=== PATIENT | male | born 1995 | race Caucasian/White ===

== ENCOUNTER 2023-02-16 15:38 | Outpatient (AMB) | payer OTHER, SELFPAY ==
[2023-02-16 15:41] VITALS: BP 136/74; PULSE 77; RESP 12; TEMP 36.7; O2SAT 99; BMI 25.2
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
== END 2023-02-16 16:17 | disposition home or self-care (01) ==
PROVIDERS: PCP Family Medicine; Visit Provider Nurse Practitioner Family
DX: Z00.00 Encounter for general adult medical examination without abnormal findings (principal)
CPT/HCPCS: 99395

== ENCOUNTER 2023-04-05 09:34 | Outpatient (REF) | payer OTHER, SELFPAY ==
[2023-04-05 12:03] LABS: Appearance Urine Clear; Color Urine Yellow; Glucose Urine UA Negative (Negative); Leukocyte Esterase Urine Trace (Negative); Nitrite Urine Negative (Negative); PH 7.5 (5.0-9.0); Specific Gravity - Urine 1.025 (1.005-1.025); UMIC TRIGGER UACC YES; Urine Blood Negative (Negative); Urine Ketones Negative (Negative); Urine Protein Negative (Neg-Trace)
[2023-04-05 12:05] LABS: Bacteria Urine None Seen (None Seen); Hyaline Casts Urine 0-2 /LPF (0-2); RBC Urine 0-2 /HPF (0-2); Squamous Epithelial Cell Urine 0-2 /HPF (0-2); WBC Urine 0-5 /HPF (0-5)
[2023-04-05 12:13] LABS: Hematocrit 42.1 % (42.0-52.0); Hemoglobin 14.9 g/dl (14.0-18.0); Mean Corpuscular HGB Conc 35.4 g/dl (31.0-36.0); Mean Corpuscular Hemoglobin 30.8 pg (27.0-33.0); Mean Corpuscular Volume 87.2 fL (80.0-98.0); Mean Platelet Volume 10.2 fL (9.4-12.4); Platelet Count 193 X10*3/uL (160-400); Red Blood Count 4.83 X10*6/uL (4.60-5.80); Red Cell Distribution Width 11.9 % (11.0-16.0); White Blood Count 5.6 X10*3/uL (4.8-10.8)
[2023-04-05 12:37] LABS: Alanine Aminotransferase 8 U/L (0-40); Albumin Level 4.2 g/dL (3.5-5.0); Alkaline Phosphatase 49 U/L (39-117); Anion Gap 9 (12-20); Aspartate Amino Transferase 18 U/L (5-37); Bilirubin Total 0.6 mg/dL (0.0-1.0); Blood Urea Nitrogen 20 mg/dL (9-16); Calcium 9.4 mg/dL (8.4-10.2); Carbon Dioxide 28 mmol/L (22-29); Chloride 106 mmol/L (96-108); Cholesterol 127 mg/dL (<200); Estimated Glomerular Filt Rate > 60; Glucose Fasting 95 mg/dL (60-99); HDL Cholesterol 42 mg/dL (>40); LDL Cholesterol Calculated 78 mg/dL (<100); Potassium 3.8 mmol/L (3.3-5.1); Sodium 139 mmol/L (135-145); TSH reflex Free T4 0.86 uIU/mL (0.32-4.0); Triglycerides 36 mg/dL (<150)
== END 2023-04-05 09:35 | disposition home or self-care (01) ==
LOC: HO.WFDLDS 09:34
PROVIDERS: Visit Provider Nurse Practitioner Family
DX: Z00.00 Encounter for general adult medical examination without abnormal findings (principal)
CPT/HCPCS: 36415; 80053; 80061; 81001; 81003; 84443; 85027

== ENCOUNTER 2023-04-18 16:09 | Outpatient (AMB) | payer OTHER, SELFPAY ==
[2023-04-18 16:13] VITALS: BP 106/64; PULSE 76; RESP 12; TEMP 36.4; O2SAT 99; BMI 25.0
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
== END 2023-04-18 16:35 | disposition home or self-care (01) ==
PROVIDERS: PCP Family Medicine; Visit Provider Nurse Practitioner Family
DX: F41.9 Anxiety disorder, unspecified (principal); F32.A Depression, unspecified; F90.9 Attention-deficit hyperactivity disorder, unspecified type; L70.9 Acne, unspecified
CPT/HCPCS: 99213

== ENCOUNTER 2023-08-14 17:00 | Outpatient (AMB) | payer OTHER, SELFPAY ==
[2023-08-14 17:06] VITALS: BP 116/70; PULSE 72; RESP 13; TEMP 36.5; O2SAT 99; BMI 26.4
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
== END 2023-08-14 17:33 | disposition home or self-care (01) ==
PROVIDERS: PCP Family Medicine; Visit Provider Nurse Practitioner Family
DX: F41.9 Anxiety disorder, unspecified (principal); F32.A Depression, unspecified; F90.9 Attention-deficit hyperactivity disorder, unspecified type; G47.9 Sleep disorder, unspecified
CPT/HCPCS: 96127; 99213

== ENCOUNTER 2023-12-15 16:41 | Outpatient (AMB) | payer OTHER, SELFPAY ==
[2023-12-15 16:49] VITALS: BP 104/74; PULSE 75; RESP 14; TEMP 36.5; O2SAT 99; BMI 27.0
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
== END 2023-12-15 17:14 | disposition home or self-care (01) ==
PROVIDERS: PCP Family Medicine; Visit Provider Nurse Practitioner Family
DX: M54.9 Dorsalgia, unspecified (principal); F41.9 Anxiety disorder, unspecified; F32.A Depression, unspecified; F90.9 Attention-deficit hyperactivity disorder, unspecified type; G89.29 Other chronic pain
CPT/HCPCS: 99214; G2211

== ENCOUNTER 2024-01-17 08:13 | Outpatient (AMB) | payer OTHER, SELFPAY ==
[2024-01-17 08:19] VITALS: BP 112/68; PULSE 78; O2SAT 98
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
== END 2024-01-17 08:54 | disposition home or self-care (01) ==
PROVIDERS: PCP Family Medicine; Visit Provider Nurse Practitioner Family
DX: B86 Scabies (principal)
CPT/HCPCS: 99213

== ENCOUNTER 2024-03-19 16:39 | Outpatient (AMB) | payer OTHER, SELFPAY ==
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
[2024-03-19 16:42] VITALS: BP 110/80; PULSE 79; RESP 16; TEMP 36.9; O2SAT 98; BMI 25.5
== END 2024-03-19 17:06 | disposition home or self-care (01) ==
PROVIDERS: Visit Provider Nurse Practitioner Family
DX: F41.9 Anxiety disorder, unspecified (principal); F32.A Depression, unspecified; F90.9 Attention-deficit hyperactivity disorder, unspecified type
CPT/HCPCS: 96127; 99214

== ENCOUNTER 2024-04-01 08:32 | Outpatient (REF) | payer OTHER, SELFPAY ==
[2024-04-01 11:17] LABS: MANUAL DIFF FLAG NO
[2024-04-01 11:26] LABS: Appearance Urine Turbid; Color Urine Dark Yellow; Glucose Urine UA Negative (Negative); Leukocyte Esterase Urine Negative (Negative); Nitrite Urine Negative (Negative); Specific Gravity - Urine >= 1.030 (1.005-1.025); Urine Blood Negative (Negative); Urine Ketones Negative (Negative); Urine Protein Trace mg/dL (Neg-Trace)
[2024-04-01 11:46] LABS: Basophils Percent Auto 0.6 % (0-2); Eosinophils Absolute Auto 0.1 X10*3/uL (0.0-0.4); Eosinophils Percent Auto 2.2 % (0-4); Hematocrit 43.3 % (42.0-52.0); Hemoglobin 14.6 g/dl (14.0-18.0); Imm Gran Abs Auto 0.01 X10*3/uL (0.00-0.03); Imm Gran Pct Auto 0.2 % (0.0-0.4); Lymphocytes Absolute Auto 1.8 X10*3/uL (1.2-4.9); Mean Corpuscular HGB Conc 33.7 g/dl (31.0-36.0); Mean Corpuscular Volume 89.1 fL (80.0-98.0); Monocytes Absolute Auto 0.4 X10*3/uL (0.1-1.2); Monocytes Percent Auto 8.1 % (2-11); Neutrophils Absolute Auto 2.6 x10*3/uL (2.0-8.3); Neutrophils Percent Auto 51.9 % (45-73); Platelet Count 191 X10*3/uL (160-400); Red Blood Count 4.86 X10*6/uL (4.60-5.80); Red Cell Distribution Width 11.9 % (11.0-16.0)
[2024-04-01 12:41] LABS: Alanine Aminotransferase 13 U/L (0-40); Albumin Level 4.2 g/dL (3.5-5.0); Alkaline Phosphatase 47 U/L (39-117); Anion Gap 10 (12-20); Aspartate Amino Transferase 18 U/L (5-37); Bilirubin Total 0.5 mg/dL (0.0-1.0); Blood Urea Nitrogen 25 mg/dL (9-16); Calcium 9.3 mg/dL (8.4-10.2); Carbon Dioxide 29 mmol/L (22-29); Chloride 107 mmol/L (96-108); Cholesterol 121 mg/dL (<200); Estimated Glomerular Filt Rate > 60; Glucose Fasting 93 mg/dL (60-99); HDL Cholesterol 36 mg/dL (>40); LDL Cholesterol Calculated 77 mg/dL (<100); Sodium 142 mmol/L (135-145); Total Protein 6.9 g/dL (6.5-8.0); Triglycerides 41 mg/dL (<150)
[2024-04-01 12:46] LABS: TSH reflex Free T4 0.94 uIU/mL (0.32-4.0)
== END 2024-04-01 08:33 | disposition home or self-care (01) ==
LOC: HO.WFDLDS 08:32
PROVIDERS: Visit Provider Nurse Practitioner Family
DX: Z00.00 Encounter for general adult medical examination without abnormal findings (principal)
CPT/HCPCS: 36415; 80053; 80061; 81003; 84443; 85025

== ENCOUNTER 2024-04-15 12:53 | Outpatient (AMB) | payer OTHER, SELFPAY ==
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
[2024-04-15 13:34] VITALS: BP 102/70; PULSE 73; RESP 14; O2SAT 97; BMI 25.4
== END 2024-04-15 14:20 | disposition home or self-care (01) ==
PROVIDERS: Visit Provider Nurse Practitioner Family
DX: F90.0 Attention-deficit hyperactivity disorder, predominantly inattentive type (principal); Z76.89 Persons encountering health services in other specified circumstances; F41.1 Generalized anxiety disorder; F33.1 Major depressive disorder, recurrent, moderate

== ENCOUNTER → 2024-04-15 12:53 | Outpatient (BNVA) | payer OTHER, SELFPAY | PROVIDERS: Visit Provider Nurse Practitioner Family | DX: F90.0 Attention-deficit hyperactivity disorder, predominantly inattentive type (principal); F41.1 Generalized anxiety disorder; F33.1 Major depressive disorder, recurrent, moderate | CPT/HCPCS: 96127 ==

== ENCOUNTER 2024-06-05 10:30 | Outpatient (AMB) | payer OTHER, SELFPAY ==
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
[2024-06-05 10:38] VITALS: BP 98/68; PULSE 69; O2SAT 97; BMI 24.7
== END 2024-06-05 11:13 | disposition home or self-care (01) ==
PROVIDERS: PCP Nurse Practitioner Family; Visit Provider Nurse Practitioner Family
DX: F33.1 Major depressive disorder, recurrent, moderate (principal); F41.1 Generalized anxiety disorder; F90.0 Attention-deficit hyperactivity disorder, predominantly inattentive type

== ENCOUNTER 2024-06-25 13:41 | Outpatient (AMB) | payer OTHER, SELFPAY ==
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
[2024-06-25 13:47] VITALS: BP 99/59; PULSE 59; RESP 12; O2SAT 98; BMI 25.4
== END 2024-06-25 14:11 | disposition home or self-care (01) ==
PROVIDERS: PCP Nurse Practitioner Family; Visit Provider Nurse Practitioner Family
DX: G47.9 Sleep disorder, unspecified (principal); F33.1 Major depressive disorder, recurrent, moderate; F41.1 Generalized anxiety disorder; F90.0 Attention-deficit hyperactivity disorder, predominantly inattentive type

== ENCOUNTER → 2024-06-25 13:41 | Outpatient (BNVA) | payer OTHER, SELFPAY | PROVIDERS: PCP Nurse Practitioner Family; Visit Provider Nurse Practitioner Family ==

== ENCOUNTER 2024-07-05 15:24 | Outpatient (AMB) | payer OTHER, SELFPAY ==
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
== END 2024-07-05 16:50 | disposition home or self-care (01) ==
PROVIDERS: PCP Nurse Practitioner Family; Visit Provider Nurse Practitioner Family
DX: F41.1 Generalized anxiety disorder (principal); F33.1 Major depressive disorder, recurrent, moderate; G47.9 Sleep disorder, unspecified; F90.0 Attention-deficit hyperactivity disorder, predominantly inattentive type

== ENCOUNTER 2024-07-31 12:46 | Outpatient (AMB) | payer OTHER, SELFPAY ==
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
[2024-07-31 12:51] VITALS: BP 136/72; PULSE 60; RESP 13; O2SAT 99; BMI 27.6
== END 2024-07-31 14:06 | disposition home or self-care (01) ==
PROVIDERS: PCP Nurse Practitioner Family; Visit Provider Nurse Practitioner Family
DX: F33.1 Major depressive disorder, recurrent, moderate (principal); F41.1 Generalized anxiety disorder; F90.0 Attention-deficit hyperactivity disorder, predominantly inattentive type

== ENCOUNTER → 2024-07-31 12:46 | Outpatient (BNVA) | payer OTHER, SELFPAY | PROVIDERS: PCP Nurse Practitioner Family; Visit Provider Nurse Practitioner Family | DX: F33.1 Major depressive disorder, recurrent, moderate (principal); F41.1 Generalized anxiety disorder; F90.0 Attention-deficit hyperactivity disorder, predominantly inattentive type; Z79.899 Other long term (current) drug therapy | CPT/HCPCS: 96127 ==

== ENCOUNTER 2024-09-20 10:15 | Outpatient (AMB) | payer OTHER, SELFPAY ==
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
[2024-09-20 10:39] VITALS: BP 100/66; PULSE 65; RESP 12; TEMP 36.1; O2SAT 95; BMI 27.6
--- OUTSIDE RECORDS SUMMARY | 2024-09-20 11:28 | XMS_ITS | Encounter Summary ---
Author Organization [employer] Address [address] [place] [id number] Care Team Providers Care Chemical Engineering Technician Name Role Phone Steffany Wise MARINE OPERATIONS COORDINATOR Primary Care Provider [phone] Reason for Visit * Reason Comments Med Refill Encounter Details Date Type Department Care Team (Late st Contact Info) Description 12/26/2022 [facility] [address] [place] [address] Steffany Wise NP [address] [place] [id number] Anxiety; Major depressive disorder in partial remission, unspecified whether recurrent Social History Tobacco Use Types Packs/Day Years Used Date Smoking Tobacco: Never Smokeless Tobacco: Never Alcohol Use Standard Drinks/Week Comments Yes 0 (1 standard drink = 0.6 oz pur e alcohol) 3-6 drinks a week PHQ-2 Answer Date Recorded Depression Risk (PHQ2) Score 0 Sex and Gender Information Value Date Recorded Sex Assigned at Not on file Legal Sex Male 11:50 AM [facility] Gender Identity Not on file Sexual Orientation Not on file documented as of this encounter Plan of Treatment Not on file documented as of this encounter Visit Diagnoses Diagnosis Anxiety Anxiety state, unspecified Major depressive disorder in partial remission, unspecified whether recurrent documented in this encounter Care Teams Chemical Engineering Technician Relationship Specialty Start Date End Date Steffany Wise NP [address] [place] [id number] PCP - General Family Medicine 01/20/22 documented as of this encounter
--- OUTSIDE RECORDS SUMMARY | 2024-09-20 11:28 | XMS_ITS | Encounter Summary ---
Author Organization [employer] Address [address] [place] [address] Care Team Providers Care Lobby Porter Name Role Phone Steffany Wise PIZZA HUT TEAM MEMBER Primary Care Provider +1- [phone] Reason for Visit * Reason Comments Med Refill Encounter Details Date Type Department Care Team ([facility] st Contact Info) Description 12/15/2022 Refill COUNT INCLUDES [facility] [address] [place] [address] Steffany Wise NP [address] [place] [address] Anxiety Social History Tobacco Use Types Packs/Day Years Used Date Smoking Tobacco: Never Smokeless Tobacco: Never Alcohol Use Standard Drinks/Week Comments Yes 0 (1 standard drink = 0.6 oz pur e alcohol) 3-6 drinks a week PHQ-2 Answer Date Recorded Depression Risk (PHQ2) Score 0 Sex and Gender Information Value Date Recorded Sex Assigned at Not on file Legal Sex Male 11:50 AM MST Gender Identity Not on file Sexual Orientation Not on file documented as of this encounter Plan of Treatment Not on file documented as of this encounter Visit Diagnoses Diagnosis Anxiety Anxiety state, unspecified documented in this encounter Care Teams Lobby Porter Relationship Specialty Start Date End Date Steffany Wise NP [address] [place] [address] PCP - General Family Medicine 01/20/22 documented as of this encounter
--- OUTSIDE RECORDS SUMMARY | 2024-09-20 11:28 | XMS_ITS | Clinical Summary ---
Author Organization [employer] Address [address] [place] [address] Care Team Providers Care Mixed Crop Farmer Name Role Phone Steffany Wise NP Primary Care Provider +1- [phone] Allergies Active Allergy Reactions Criticality Noted Date Comments Cephalosporins Hives,Swelling 01/20/2022 Medications clindamycin-benzoy l peroxide (BENZACLIN) gel Apply topically if needed Active DULoxetine (CYMBALTA) [address] capsuleIndications :Anxiety,Major depressive disorder in partial remission, unspecified whether recurrent Take 2 capsules daily 180 capsule 1 2 Active hydrOXYzine HCL (ATARAX) 25 mg tabletIndications: Anxiety Take 1 tablet (25 mg total) by mouth at night if needed for anxiety 90 tablet 3 Active methylphenidate (RITALIN) 5 mg tabletIndications: Attention deficit hyperactivity disorder (ADHD), unspecified ADHD type Take 2 tablets (10 mg total) by mouth daily 60 tablet 3 Active Active Problems Problem Noted Date Diagnosed Date ADHD 01/20/2022 Anxiety 01/20/2022 Major depressive disorder in partial remission 0 01/20/2022 GERD (gastroesophageal reflux disease) 2 IBS (irritable bowel syndrome) 01/20/2022 Family History Medical History Relation Comments Heart attack Mother Hypertension Mother Relation Status Comments Father Alive Mother Alive Social History Tobacco Use Types Packs/Day Years [...] on file Sexual Orientation Not on file Last Filed Vital Signs Vital Sign Reading Time Taken Comments Blood Pressure 124/74 09/20/2022 11:58 AM EST Pulse 73 09/20/2022 11:58 AM EST Temperature 36.5 ??C (97.7 ??F) 09/20/2022 11:[address] Respiratory Rate - - Oxygen Saturation 97% 09/20/2022 11:58 AM EST Inhaled Oxygen Concentration - - Weight 89.5 kg (197 lb 6.4 oz) 09/20/2022 11:58 AM EST Height 183 cm (6' 0.05 ) 01/20/2022 10:02 AM EDT Body Mass Index 26.74 01/20/2022 10:02 AM EDT Plan of Treatment Health Maintenance Due Date Last Done Comments PHQ-9 Depression Screen 2008 HERMANN-7 Anxiety Screen 2014 DTaP,Tdap,and Td Vaccines (1 - Tdap) 2015 Annual Preventive Exam 01/20/2023 01/20/2022 COVID-19 Vaccine ( - 2023-25 season) 2024 Influenza Vaccine (#1) 2024 RSV Vaccine (SCDM) (1 - 1-dose 75+ series) 2071 Hepatitis C Screening Completed 01/20/2022 Procedures Procedure Name Priority Date/Time Associated Diagnosis Comments HEPATITIS C VIRUS (HCV) ANTIBODY WITH REFLEX TO QUANTITATIVE REAL-TIME PCR Routine 01/20/2022 10:50 AM EDT from Last 3 Months or Most Recently Relevant to Health Maintenance Results * Hepatitis C Virus (HCV) Antibody With Reflex to Quantitative Real-time PCR (01/20/2022 10:50 AM EDT) HCV Ab <0.1 0.0 - 0.9 s/co ratio [facility] 01/20/2022 10:5 0 AM EDT 01/20/2022 Comment:Blood, Venous Narrative [facility] - 01/21/2022 8:16 AM EDT Performed at: ??01 - [facility] [address], [place], [place] ??[id number] Electroencephalogram Technologist: Teresa Alvarez MD, Phone: ??[phone] Steffany Wise NP LAB BLOOD ORDERABLES Final Result [facility] from Last 3 Months or Most Recently Relevant to Health Maintenance Insurance [employer] Care Teams Mixed Crop Farmer Relationship Specialty Start Date End Date Steffany Wise NP [address] [place] [address] PCP - General Family Medicine 01/20/22
== END 2024-09-20 11:18 | disposition home or self-care (01) ==
PROVIDERS: PCP Nurse Practitioner Family; Visit Provider Nurse Practitioner Family
DX: Z00.00 Encounter for general adult medical examination without abnormal findings (principal); F33.1 Major depressive disorder, recurrent, moderate; Z77.011 Contact with and (suspected) exposure to lead; Z28.21 Immunization not carried out because of patient refusal; F90.0 Attention-deficit hyperactivity disorder, predominantly inattentive type; H52.203 Unspecified astigmatism, bilateral; E78.6 Lipoprotein deficiency; F41.1 Generalized anxiety disorder; M79.89 Other specified soft tissue disorders

== ENCOUNTER → 2024-09-20 10:15 | Outpatient (BNVA) | payer OTHER, SELFPAY | PROVIDERS: PCP Nurse Practitioner Family; Visit Provider Nurse Practitioner Family | DX: Z00.00 Encounter for general adult medical examination without abnormal findings (principal); F90.0 Attention-deficit hyperactivity disorder, predominantly inattentive type; F33.1 Major depressive disorder, recurrent, moderate; H52.203 Unspecified astigmatism, bilateral; E78.6 Lipoprotein deficiency; F41.1 Generalized anxiety disorder; M79.89 Other specified soft tissue disorders; Z77.011 Contact with and (suspected) exposure to lead; Z28.21 Immunization not carried out because of patient refusal | CPT/HCPCS: 96127 ==

== ENCOUNTER 2024-09-27 16:01 | Outpatient (AMB) | payer OTHER, SELFPAY ==
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
--- OUTSIDE RECORDS SUMMARY | 2024-09-27 17:21 | XMS_ITS | Clinical Summary ---
Author Organization [employer] Address [address] [place] [address] Care Team Providers Care Substation Operator Helper Generation Name Role Phone Steffany Wise NP Primary Care Provider +1- [phone] Allergies Active Allergy Reactions Criticality Noted Date [...] AM EDT Performed at: ??01 - [facility] [address], [place], [place] ??[id number] Hydrotechnical Specialist: Teresa Alvarez MD, Phone: ??[phone] Steffany Wise NP LAB BLOOD ORDERABLES Final Result [facility] from Last 3 Months or Most Recently Relevant to Health Maintenance Insurance [employer] Care Teams Substation Operator Helper Generation Relationship Specialty Start Date End Date Steffany Wise NP [address] [place] [address] PCP - General Family Medicine 01/20/22
--- OUTSIDE RECORDS SUMMARY | 2024-09-27 17:21 | XMS_ITS | Encounter Summary ---
Author Organization [employer] Address [address] [place] [address] Care Team Providers Care Lockstitch Back Maker Name Role Phone Steffany Wise STOREKEEPER ENGINEERING Primary Care Provider +1- [phone] Reason for Visit * Reason Comments Med Refill Encounter Details Date Type Department Care Team (Late st Contact Info) Description 12/26[facility]2022 [facility] [address] [place] [address] Steffany Wise NP [address] [place] [address] Anxiety; Major depressive disorder in partial remission, [...] on file Legal Sex Male 11:50 AM [facility] Gender Identity Not on file Sexual Orientation Not on file documented as of this encounter Plan of Treatment Not on file documented as of this encounter Visit Diagnoses Diagnosis Anxiety Anxiety state, unspecified Major depressive disorder in partial remission, unspecified whether recurrent documented in this encounter Care Teams Lockstitch Back Maker Relationship Specialty Start Date End Date Steffany Wise NP [address] [place] [address] PCP - General Family Medicine 01/20/22 documented as of this encounter
--- OUTSIDE RECORDS SUMMARY | 2024-09-27 17:21 | XMS_ITS | Encounter Summary ---
Author Organization [employer] Address [address] [place] [address] Care Team Providers Care Film Splicer Name Role Phone Steffany Wise ELECTRICAL TESTS SUPERVISOR Primary Care Provider +1- [phone] Reason for Visit * Reason Comments Med Refill Encounter Details Date Type Department Care Team ([facility] st Contact Info) Description 12/15/2022 Refill [facility] [address] [place] [address] Steffany Wise NP [address] [place] [address] Anxiety Social History Tobacco Use Types Packs/Day [...] unspecified documented in this encounter Care Teams Film Splicer Relationship Specialty Start Date End Date Steffany Wise NP [address] [place] [address] PCP - General Family Medicine 01/20/22 documented as of this encounter
== END 2024-09-27 17:08 | disposition home or self-care (01) ==
LOC: HO.HOP 16:01
PROVIDERS: PCP Nurse Practitioner Family; Visit Provider Clinical Nurse Specialist Psychiatric/Mental Health
DX: F33.1 Major depressive disorder, recurrent, moderate (principal); F41.1 Generalized anxiety disorder; F90.0 Attention-deficit hyperactivity disorder, predominantly inattentive type; Z77.011 Contact with and (suspected) exposure to lead
CPT/HCPCS: 90792

== ENCOUNTER → 2024-09-27 16:01 | Outpatient (BNVA) | payer OTHER, SELFPAY | PROVIDERS: PCP Nurse Practitioner Family; Visit Provider Clinical Nurse Specialist Psychiatric/Mental Health | DX: Z13.88 Encounter for screening for disorder due to exposure to contaminants (principal) ==

== ENCOUNTER 2024-09-30 10:03 | Outpatient (AMB) | payer OTHER, SELFPAY ==
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
[2024-09-30 10:33] VITALS: BP 128/68; PULSE 116; RESP 13; TEMP 36.2; O2SAT 96; BMI 27.3
--- OUTSIDE RECORDS SUMMARY | 2024-09-30 11:11 | XMS_ITS | Clinical Summary ---
Author Organization [employer] Address [address] [place] [address] Care Team Providers Care Regional Owner Operator Truck Driver Name Role Phone Steffany Wise NP Primary Care Provider +1- [phone] Allergies Active Allergy Reactions Criticality Noted Date [...] AM EDT Performed at: ??01 - [facility] [address], [place], [place] ??[id number] Diamond Polisher: Teresa Alvarez MD, Phone: ??[phone] Steffany Wise NP LAB BLOOD ORDERABLES Final Result [facility] from Last 3 Months or Most Recently Relevant to Health Maintenance Insurance [employer] Care Teams Regional Owner Operator Truck Driver Relationship Specialty Start Date End Date Steffany Wise NP [address] [place] [address] PCP - General Family Medicine 01/20/22
--- OUTSIDE RECORDS SUMMARY | 2024-09-30 11:11 | XMS_ITS | Encounter Summary ---
Author Organization [employer] Address [address] [place] [address] Care Team Providers Care Forest Pathology Professor Name Role Phone Steffany Wise SENIOR COBOL DEVELOPER Primary Care Provider +1- [phone] Reason for Visit * Reason Comments Med Refill Encounter Details Date Type Department Care Team (Late st Contact Info) Description 12/26/[address] [facility] [address] [place] [address] Steffany Wise NP [address] [place] [address] Anxiety; Major depressive disorder in partial remission, [...] on file Legal Sex Male 11:50 AM [facility] Gender Identity Not on file Sexual Orientation Not on file documented as of this encounter Plan of Treatment Not on file documented as of this encounter Visit Diagnoses Diagnosis Anxiety Anxiety state, unspecified Major depressive disorder in partial remission, unspecified whether recurrent documented in this encounter Care Teams Forest Pathology Professor Relationship Specialty Start Date End Date Steffany Wise NP [address] [place] [address] PCP - General Family Medicine 01/20/22 documented as of this encounter
--- OUTSIDE RECORDS SUMMARY | 2024-09-30 11:11 | XMS_ITS | Encounter Summary ---
Author Organization [employer] Address [address] [place] [address] Care Team Providers Care Missile Mechanic Name Role Phone Steffany Wise TRAVELING NURSE Primary Care Provider +1- [phone] Reason for Visit * Reason Comments Med Refill Encounter Details Date Type Department Care Team ([facility] st Contact Info) Description 12/15/2022 Refill [facility] [address] [place] [address] Steffany Wise NP [address] [place] [address] Anxiety Social History Tobacco Use Types Packs/Day [...] unspecified documented in this encounter Care Teams Missile Mechanic Relationship Specialty Start Date End Date Steffany Wise NP [address] [place] [address] PCP - General Family Medicine 01/20/22 documented as of this encounter
[2024-09-30 12:44] VITALS: PULSE 80
== END 2024-09-30 13:06 | disposition home or self-care (01) ==
LOC: HO.HMCWIW 10:03
PROVIDERS: PCP Nurse Practitioner Family; Visit Provider Nurse Practitioner Family
DX: R78.71 Abnormal lead level in blood (principal); Z77.011 Contact with and (suspected) exposure to lead; R55 Syncope and collapse

== ENCOUNTER → 2024-09-30 10:03 | Outpatient (BNVA) | payer OTHER, SELFPAY | PROVIDERS: PCP Nurse Practitioner Family; Visit Provider Nurse Practitioner Family ==

== ENCOUNTER → 2024-09-30 11:31 | Outpatient (BNVA) | payer OTHER, SELFPAY | PROVIDERS: PCP Nurse Practitioner Family; Visit Provider Internal Medicine | DX: R78.71 Abnormal lead level in blood (principal); Z13.9 Encounter for screening, unspecified | CPT/HCPCS: 81003; 82565; 83655; 84520; 85025; 99203 ==

== ENCOUNTER → 2024-10-07 11:08 | Outpatient (BNVA) | payer OTHER, SELFPAY | PROVIDERS: PCP Nurse Practitioner Family; Visit Provider Internal Medicine | DX: Z77.011 Contact with and (suspected) exposure to lead (principal) | CPT/HCPCS: 99213 ==

== ENCOUNTER 2024-10-11 12:23 | Outpatient (AMB) | payer OTHER, SELFPAY ==
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
[2024-10-11 12:28] VITALS: BP 98/66; PULSE 103; RESP 12; TEMP 36.4; O2SAT 97; BMI 28.4
[2024-10-11 13:15] VITALS: PULSE 80
--- OUTSIDE RECORDS SUMMARY | 2024-10-11 14:52 | XMS_ITS | Encounter Summary ---
Author Organization [employer] Address [address] [place] [address] Care Team Providers Care Flotation Tender Helper Name Role Phone Steffany Wise FISH RECEIVER Primary Care Provider +1- [phone] Reason for Visit * Reason Comments Med Refill Encounter Details Date Type Department Care Team (Late st Contact Info) Description 12/26/2022 [facility] [address] [place] [address] Steffany Wise NP [address] [place] [address] Anxiety; Major depressive disorder in partial remission, [...] on file Legal Sex Male 11:50 AM [facility] Gender Identity Not on file Sexual Orientation Not on file documented as of this encounter Plan of Treatment Not on file documented as of this encounter Visit Diagnoses Diagnosis Anxiety Anxiety state, unspecified Major depressive disorder in partial remission, unspecified whether recurrent documented in this encounter Care Teams Flotation Tender Helper Relationship Specialty Start Date End Date Steffany Wise NP [address] [place] [address] PCP - General Family Medicine 01/20/22 documented as of this encounter
--- OUTSIDE RECORDS SUMMARY | 2024-10-11 14:52 | XMS_ITS | Clinical Summary ---
Author Organization [employer] Address [address] [place] [address] Care Team Providers Care Clerk Manager Name Role Phone Steffany Wise NP Primary Care Provider +1- [phone] Allergies Active Allergy Reactions Criticality Noted Date [...] AM EDT Performed at: ??01 - [facility] [address], [place], [place] ??[id number] Bank Messenger: Teresa Alvarez MD, Phone: ??[phone] Steffany Wise NP LAB BLOOD ORDERABLES Final Result [facility] from Last 3 Months or Most Recently Relevant to Health Maintenance Insurance [employer] Care Teams Clerk Manager Relationship Specialty Start Date End Date Steffany Wise NP [address] [place] [address] PCP - General Family Medicine 01/20/22
--- OUTSIDE RECORDS SUMMARY | 2024-10-11 14:52 | XMS_ITS | Encounter Summary ---
Author Organization [employer] Address [address] [place] [address] Care Team Providers Care Special Investigation Unit Investigator Name Role Phone Steffany Wise PROOFER BLACK [employer] WHITE Primary Care Provider +1- [phone] Reason for Visit * Reason Comments Med Refill Encounter Details Date Type Department Care Team ([facility] st Contact Info) Description 12/15/2022 Refill [facility] [address] [place] [address] Steffany Wise NP [address] [place] [address] Anxiety Social History Tobacco Use Types Packs/Day [...] unspecified documented in this encounter Care Teams Special Investigation Unit Investigator Relationship Specialty Start Date End Date Steffany Wise NP [address] [place] [address] PCP - General Family Medicine 01/20/22 documented as of this encounter
== END 2024-10-11 14:34 | disposition home or self-care (01) ==
LOC: HO.HMCFM 12:24
PROVIDERS: PCP Nurse Practitioner Family; Visit Provider Nurse Practitioner Family
DX: F90.0 Attention-deficit hyperactivity disorder, predominantly inattentive type (principal); F41.1 Generalized anxiety disorder; F33.1 Major depressive disorder, recurrent, moderate; R78.71 Abnormal lead level in blood

== ENCOUNTER 2024-10-11 12:23 | Outpatient (REF) | payer OTHER, SELFPAY ==
[2024-10-11 18:59] LABS: Iron 59 mcg/dL (45-160); Percent Iron Saturation 24 % (15-50); Total Iron Binding Capacity 243 mcg/dL (228-428); Unsaturated Iron Binding 184 ug/dL
[2024-10-11 19:14] LABS: Vitamin D 25-OH Total 45.5 ng/mL (>30)
[2024-10-11 19:26] LABS: Folate 15.3 ng/mL (> or = 4.0); Vitamin B12 506 pg/mL (200-900)
== END 2024-10-11 12:24 | disposition home or self-care (01) ==
LOC: HO.LAB 12:23
PROVIDERS: PCP Nurse Practitioner Family; Visit Provider Nurse Practitioner Family
DX: R78.71 Abnormal lead level in blood (principal)
CPT/HCPCS: 36415; 82306; 82607; 82746; 83540

== ENCOUNTER → 2024-10-11 15:41 | Outpatient (BNVA) | payer OTHER, SELFPAY | PROVIDERS: PCP Nurse Practitioner Family | DX: Z77.011 Contact with and (suspected) exposure to lead (principal) | CPT/HCPCS: 80076; 83655; 85025; 99211 ==

== ENCOUNTER → 2024-10-16 11:05 | Outpatient (BNVA) | payer OTHER, SELFPAY | PROVIDERS: PCP Nurse Practitioner Family; Visit Provider Internal Medicine | DX: Z77.011 Contact with and (suspected) exposure to lead (principal) | CPT/HCPCS: 99213 ==

== ENCOUNTER → 2024-10-18 16:03 | Outpatient (BNVA) | payer OTHER, SELFPAY | PROVIDERS: PCP Nurse Practitioner Family | DX: Z77.011 Contact with and (suspected) exposure to lead (principal) | CPT/HCPCS: 85025; 99211 ==

== ENCOUNTER 2024-10-19 10:56 | Outpatient (REF) | payer OTHER, SELFPAY ==
[2024-10-19 11:44] LABS: Alanine Aminotransferase 27 U/L (0-40); Albumin Level 4.2 g/dL (3.5-5.0); Alkaline Phosphatase 57 U/L (39-117); Anion Gap 8 (12-20); Aspartate Amino Transferase 21 U/L (5-37); Bilirubin Total 0.3 mg/dL (0.0-1.0); Blood Urea Nitrogen 24 mg/dL (9-16); Calcium 9.1 mg/dL (8.4-10.2); Carbon Dioxide 28 mmol/L (22-29); Chloride 108 mmol/L (96-108); Estimated Glomerular Filt Rate > 60; Glucose Fasting 101 mg/dL (60-99); Potassium 4.7 mmol/L (3.3-5.1); Sodium 139 mmol/L (135-145)
== END 2024-10-19 10:57 | disposition home or self-care (01) ==
LOC: HO.LAB 10:56
PROVIDERS: Internal Medicine; PCP Nurse Practitioner Family; Visit Provider Internal Medicine
DX: Z77.011 Contact with and (suspected) exposure to lead (principal)
CPT/HCPCS: 36415; 80053

== ENCOUNTER 2024-10-21 16:11 | Outpatient (AMB) | payer OTHER, SELFPAY ==
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
--- OUTSIDE RECORDS SUMMARY | 2024-10-21 17:52 | XMS_ITS | Clinical Summary ---
Author Organization [employer] Address [address] [place] [address] Care Team Providers Care Resourcing Advisor Name Role Phone Steffany Wise NP Primary Care Provider +1- [phone] Allergies Active Allergy Reactions Criticality Noted Date [...] AM EDT Performed at: ??01 - [facility] [address], [place], [place] ??[id number] Dry Starch Operator: Teresa Alvarez MD, Phone: ??[phone] Steffany Wise NP LAB BLOOD ORDERABLES Final Result [facility] from Last 3 Months or Most Recently Relevant to Health Maintenance Insurance [employer] Care Teams Resourcing Advisor Relationship Specialty Start Date End Date Steffany Wise NP [address] [place] [address] PCP - General Family Medicine 01/20/22
--- OUTSIDE RECORDS SUMMARY | 2024-10-21 17:52 | XMS_ITS | Encounter Summary ---
Author Organization [employer] Address [address] [place] [address] Care Team Providers Care Hand Coremaker Name Role Phone Steffany Wise CHEMICAL PRODUCTION ENGINEER Primary Care Provider +1- [phone] Reason for Visit * Reason Comments Med Refill Encounter Details Date Type Department Care Team (Late st Contact Info) Description 12/26/2022 [facility] [address] [place] [address] Steffany Wise NP [address] [place] [address] Anxiety; Major depressive disorder in partial remission, [...] on file Legal Sex Male 11:50 AM [facility] Gender Identity Not on file Sexual Orientation Not on file documented as of this encounter Plan of Treatment Not on file documented as of this encounter Visit Diagnoses Diagnosis Anxiety Anxiety state, unspecified Major depressive disorder in partial remission, unspecified whether recurrent documented in this encounter Care Teams Hand Coremaker Relationship Specialty Start Date End Date Steffany Wise NP [address] [place] [address] PCP - General Family Medicine 01/20/22 documented as of this encounter
--- OUTSIDE RECORDS SUMMARY | 2024-10-21 17:52 | XMS_ITS | Encounter Summary ---
Author Organization [employer] Address [address] [place] [address] Care Team Providers Care Land Department Head Name Role Phone Steffany Wise BAND TACKER Primary Care Provider +1- [phone] Reason for Visit * Reason Comments Med Refill Encounter Details Date Type Department Care Team ([facility] st Contact Info) Description 12/15/2022 Refill [facility] [address] [place] [address] Steffany Wise NP [address] [place] [address] Anxiety Social History Tobacco Use Types Packs/Day [...] unspecified documented in this encounter Care Teams Land Department Head Relationship Specialty Start Date End Date Steffany Wise NP [address] [place] [address] PCP - General Family Medicine 01/20/22 documented as of this encounter
== END 2024-10-21 16:50 | disposition home or self-care (01) ==
LOC: HO.HOP 16:11
PROVIDERS: PCP Nurse Practitioner Family; Visit Provider Clinical Nurse Specialist Psychiatric/Mental Health
DX: F33.1 Major depressive disorder, recurrent, moderate (principal); F41.1 Generalized anxiety disorder; F90.0 Attention-deficit hyperactivity disorder, predominantly inattentive type; R78.71 Abnormal lead level in blood
CPT/HCPCS: 99214

== ENCOUNTER → 2024-10-25 15:40 | Outpatient (BNVA) | payer OTHER, SELFPAY | PROVIDERS: PCP Nurse Practitioner Family | DX: Z77.011 Contact with and (suspected) exposure to lead (principal) | CPT/HCPCS: 80076; 83655; 85025; 99211 ==

== ENCOUNTER → 2024-11-01 10:23 | Outpatient (BNVA) | payer OTHER, SELFPAY | PROVIDERS: PCP Nurse Practitioner Family; Visit Provider Internal Medicine | DX: Z77.011 Contact with and (suspected) exposure to lead (principal) | CPT/HCPCS: 99213 ==

== ENCOUNTER → 2024-11-08 15:52 | Outpatient (BNVA) | payer OTHER, SELFPAY | PROVIDERS: PCP Nurse Practitioner Family | DX: Z77.011 Contact with and (suspected) exposure to lead (principal) | CPT/HCPCS: 80053; 83655; 84202; 85025; 99211 ==

== ENCOUNTER 2024-11-14 16:25 | Outpatient (AMB) | payer OTHER, SELFPAY ==
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
--- OUTSIDE RECORDS SUMMARY | 2024-11-14 18:45 | XMS_ITS | Clinical Summary ---
Author Organization [facility] Address [address] [place] [address] Care Team Providers Care Top Edge Beveler Name Role Phone Steffany Wise NP Primary Care Provider +1- [phone] Allergies Active Allergy Reactions Criticality Noted Date [...] ( - 2023-25 season) 2024 Influenza Vaccine (Season Ended) 2025 RSV Vaccine (SCDM) (1 - 1-dose 75+ [...] AM EDT Performed at: ??01 - [facility] [address] ??[id number] Animal Warden: Teresa Alvarez MD, Phone: ??[phone] Steffany Wise NP LAB BLOOD ORDERABLES Final Result [facility] from Last 3 Months or Most Recently Relevant to Health Maintenance Insurance [employer] Care Teams Top Edge Beveler Relationship Specialty Start Date End Date Steffany Wise NP [address] [place] [address] PCP - General Family Medicine 01/20/22
--- OUTSIDE RECORDS SUMMARY | 2024-11-14 18:45 | XMS_ITS | Encounter Summary ---
Author Organization [facility] Address [address] [place] [id number] Care Team Providers Care Portable Sawyer Name Role Phone Steffany Wise BUMPER MACHINE OPERATOR Primary Care Provider [phone]- [phone] Reason for Visit * Reason Comments Med Refill Encounter Details Date Type Department Care Team (Late st Contact Info) Description 12/26/2022 Refill [facility] [address] [place] [address] Steffany Wise, BUMPER MACHINE OPERATOR [address] [place] [address] Anxiety; Major depressive disorder in partial remission, [...] on file Legal Sex Male 11:50 AM [facility] Gender Identity Not on file Sexual Orientation Not on file documented as of this encounter Plan of Treatment Not on file documented as of this encounter Visit Diagnoses Diagnosis Anxiety Anxiety state, unspecified Major depressive disorder in partial remission, unspecified whether recurrent documented in this encounter Care Teams Portable Sawyer Relationship Specialty Start Date End Date Steffany Wise NP [address] [place] [address] PCP - General Family Medicine 01/20/22 documented as of this encounter
--- OUTSIDE RECORDS SUMMARY | 2024-11-14 18:45 | XMS_ITS | Encounter Summary ---
Author Organization [facility] Address [address] [place] [address] Care Team Providers Care Water Trainer Name Role Phone Steffany Wise HONING MACHINE TRY OUT SETTER Primary Care Provider [phone]- [phone] Reason for Visit * Reason Comments Med Refill Encounter Details Date Type Department Care Team ([facility] st Contact Info) Description 12/15/2022 Refill [facility] [address] [place] [address] Steffany Wise NP [address] [place] [address] Anxiety Social History Tobacco Use Types Packs/Day Years Used Date Smoking Tobacco: Never Smokeless Tobacco: Never Alcohol Use Standard Drinks/Week Comments Yes 0 (1 standard drink = 0.6 oz pur e alcohol) 3-6 drinks a week PHQ-2 Answer Date Recorded Depression Risk (PHQ2) Score 0 Sex and Gender Information Value Date Recorded Sex Assigned at Not on file Legal Sex Male 11:50 AM [facility] Gender Identity Not on file Sexual Orientation Not on file documented as of this encounter Plan of Treatment Not on file documented as of this encounter Visit Diagnoses Diagnosis Anxiety Anxiety state, unspecified documented in this encounter Care Teams Water Trainer Relationship Specialty Start Date End Date Steffany Wise NP [address] [place] [address] PCP - General Family Medicine 01/20/22 documented as of this encounter
== END 2024-11-14 16:37 | disposition home or self-care (01) ==
LOC: HO.HOP 16:25
PROVIDERS: PCP Nurse Practitioner Family; Visit Provider Clinical Nurse Specialist Psychiatric/Mental Health
DX: F33.1 Major depressive disorder, recurrent, moderate (principal); F41.1 Generalized anxiety disorder; F90.0 Attention-deficit hyperactivity disorder, predominantly inattentive type
CPT/HCPCS: 99214

== ENCOUNTER → 2024-11-18 15:31 | Outpatient (BNVA) | payer OTHER, SELFPAY | PROVIDERS: PCP Nurse Practitioner Family | DX: Z77.011 Contact with and (suspected) exposure to lead (principal) | CPT/HCPCS: 83655; 84202; 99211 ==

== ENCOUNTER → 2024-11-25 11:12 | Outpatient (BNVA) | payer OTHER, SELFPAY | PROVIDERS: PCP Nurse Practitioner Family; Visit Provider Internal Medicine | DX: Z77.011 Contact with and (suspected) exposure to lead (principal) | CPT/HCPCS: 99213 ==

== ENCOUNTER 2024-12-19 09:11 | Outpatient (AMB) | payer OTHER, SELFPAY ==
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
[2024-12-19 09:30] VITALS: BP 142/78; PULSE 78; RESP 13; TEMP 36.1; O2SAT 98; BMI 28.4
--- OUTSIDE RECORDS SUMMARY | 2024-12-19 09:35 | XMS_ITS | Encounter Summary ---
Author Organization [facility] Address [address] [place] [address] Care Team Providers Care Cigar Tobacco Rehandler Name Role Phone Steffany Wise SYSTEMS MANAGEMENT CONSULTANT Primary Care Provider [phone]- [phone] Reason for Visit * Reason Comments Med Refill Encounter Details Date Type Department Care Team ([facility] st Contact Info) Description 12/15/2022 Refill [facility] [address] [place] [address] Steffany Wise NP [address] [place] [address] Anxiety Social History Tobacco Use Types Packs/Day Years Used Date Smoking Tobacco: Never Smokeless Tobacco: Never Alcohol Use Standard Drinks/Week Comments Yes 0 (1 standard drink = 0.6 oz pur e alcohol) 3-6 drinks a week PHQ-2 Answer Date Recorded Depression Risk (PHQ2) Score 0 Sex and Gender Information Value Date Recorded Sex Assigned at Not on file Legal Sex [facility] 11:[facility] AM [facility] Gender Identity Not on file Sexual Orientation Not on file documented as of this encounter Plan of Treatment Not on file documented as of this encounter Visit Diagnoses Diagnosis Anxiety Anxiety state, unspecified documented in this encounter Care Teams Cigar Tobacco Rehandler Relationship Specialty Start Date End Date Steffany Wise NP [address] [place] [id number] PCP - General Family Medicine 01/20/22 documented as of this encounter
== END 2024-12-19 11:53 | disposition home or self-care (01) ==
LOC: HO.HMCFM 09:12
PROVIDERS: PCP Nurse Practitioner Family; Visit Provider Nurse Practitioner Family
DX: F90.0 Attention-deficit hyperactivity disorder, predominantly inattentive type (principal); F41.1 Generalized anxiety disorder; F33.1 Major depressive disorder, recurrent, moderate

== ENCOUNTER → 2024-12-19 09:11 | Outpatient (BNVA) | payer OTHER, SELFPAY | PROVIDERS: PCP Nurse Practitioner Family; Visit Provider Nurse Practitioner Family ==

== ENCOUNTER → 2024-12-20 15:01 | Outpatient (BNVA) | payer OTHER, SELFPAY | PROVIDERS: PCP Nurse Practitioner Family | DX: Z77.011 Contact with and (suspected) exposure to lead (principal) | CPT/HCPCS: 83655; 84202; 99211 ==

== ENCOUNTER → 2025-01-01 11:46 | Outpatient (BNVA) | payer OTHER, SELFPAY | PROVIDERS: PCP Nurse Practitioner Family; Visit Provider Internal Medicine | DX: Z77.011 Contact with and (suspected) exposure to lead (principal) | CPT/HCPCS: 99213 ==